=== PATIENT | male | born 1995 | race Caucasian/White ===

== ENCOUNTER 2018-04-02 00:05 | Observation (INO) | payer MEDICAID, SELFPAY ==
[2018-04-02 00:05] VITALS: BP 144/94; PULSE 82; RESP 16; TEMP 36.3; O2SAT 99
[2018-04-02 00:23] LABS: Bilirubin Negative (Negative); Blood Negative (Negative); Clarity Clear; Glucose Negative (Negative); Ketones Negative (Negative); Leukocyte Esterase Negative (Negative); Nitrite Negative (Negative)
[2018-04-02 00:33] LABS: Abs Immature Grans 0.01 k/cumm (0.0-0.09); Absolute Basophil Count 0.02 k/cumm (0.0-0.2); Absolute Eosinophil Count 0.21 k/cumm (0.0-0.7); Absolute Lymphocyte Count 3.38 k/cumm (1.2-3.4); Absolute Neutrophil Count 4.52 k/cumm (1.2-6.7); Basophils % 0.2; Eosinophils % 2.3; HCT 47.9 % (40.0-50.0); HGB 16.6 g/dL (13.5-17.5); Immature Grans % 0.1; Lymphocytes % 37.8; Mean Corp. HGB Concentration 34.7 g/dL (32.0-36.0); Mean Corpuscular Hemoglobin 28.8 pg (27.0-33.0); Mean Corpuscular Volume 83.2 fL (80-95); Mean Platelet Volume 11.1 fL (8.0-11.0); Monocytes % 8.9; Neutrophils % 50.7; Platelet Count 316 x1000/uL (130-400); RBC 5.76 m/cumm (4.50-6.00); RBC Distribution Width 13.6 % (11.8-14.1); White Blood Cell Count 8.94 k/cumm (4.4-10.8)
[2018-04-02 00:39] LABS: *AMPHETAMINES SCREEN URINE Negative (Negative); *BARBITURATES SCREEN URINE Negative (Negative); *BENZODIAZEPINES SCREEN URINE Negative (Negative); Cannabinoids THC POSITIVE (Negative); Cocaine Screen,Urine Negative (Negative); METHADONE URINE SCREEN Negative (Negative); OPIATES URINE SCREEN Negative (Negative)
[2018-04-02 00:40] LABS: Tricyclic Antidepressants Negative (Negative)
--- NOTE | 2018-04-02 00:41 | W.ED.GENAD ---
Discharge Plan Disposition Patient Disposition: STILL A PATIENT Condition: Good Discharge Details Chief Complaint: PsychEval Clinical Impression: Suicidal ideation Reason For Visit: CHEKO Primary Care Provider: NONE,NONE ED Provider: Collins Ferguson Home Meds and New Rx's Prescriptions: No Action quetiapine [Seroquel XR] 300 mg Tablet Extended Release 24 Hr 300 mg PO DAILY RF: 0 Medical Decision Making This is a 22-year-old male with a past medical history of suicidal thoughts and ideations who presents today for evaluation of suicidal thoughts. He does have a plan, however he does not want to enact his plan. He states that right now he does not want to act onhis plan and will be enacting it potentially in a couple years and not now.This plan includes taking a gun, shooting the skull only to crack the skull so that he could touch his brain and instantly . He understands that this is not realistic, and states that is why I would never actually kill myself. Patient states that mainly, I just feel very lonely I have no one to talk to at my apartment. That is when I begin thinking these things. We will perform laboratory workup and have mental health, and assessed the patient. 2:10 AM The patient has been seen and assessed by her mental health advisors, this point there are no free rooms at any of the psychiatric hospitals in [place], however [facility] has stated that they may have discharges in the morning and will be able to transfer. They will be recontacted in the morning for potential transfer. HPI General Date/Time Provider Initiated Documentation: 04/02/18 00:13. HPI Narrative: This is a pleasant 22-year-old male with a past medical history of suicidal ideations, depression, who presents today for evaluation of suicidal ideations. The patient is normally on Seroquel, however he states that for the last week he has stopped taking this because it gives him bad dreams. He states that tonight he began thinking or thoughts about wanting to harm himself. He states that I would never actually do it and they are all cerebral ideas. Plan at this time is that he would may be in a year or 2 I would take a gun, and suited at my school, but I would not want to blow migraines L, just want to go back to school. Then may be I would touch membrane and then I would . However I do not want to do this at all now, but may be in a few years. Patient denies any homicidal ideations. He denies taking any IV or illicit drugs. He denies any taking any pills or medications. He does admit to smoking tobacco and marijuana. He denies any recent surgeries. He denies any pertinent family history. He has had multiple admissions to [facility] in the past. He has no other complaints at this time. He denies any auditory or visual hallucinations. The patient does state that to be honest I am really lonely, I do not have anyone to talk to when I said at my apartment alone, I feel that he just wanted to talk and converse with people. Related Data Home Medications Medication Instructions Recorded Confirmed quetiapine [Seroquel XR] 300 mg PO DAILY 04/02/18 04/02/18 Allergies Allergy/AdvReac Type Severity Reaction Status Date / Time No Known Allergies Allergy Unverified 04/02/18 00:31 General Stated Complaint: PsychEval JHONATHAN: 2 Review of Systems Review of Systems All systems reviewed & are unremarkable except as noted in HPI and below PFSH Social History Smoking/Tobacco Use Status: Current every day Exam Narrative Exam Narrative: 1.Const: Well-nourished, Well-developed, appearing stated age 2.Eyes: PERRL, no conjunctival injection, and symmetrical lids. 3.ENT: Atraumatic external nose and ears. Moist MM. Neck: Symmetric, trachea midline, No thyromegaly. 4.CVS: +S1/S2, No murmurs or gallops. Peripheral pulses 2+ and equal in all extremities. Brisk capillary refill in all extremities. 5.RESP: Unlabored respiratory effort. Clear to auscultation bilaterally. No wheezes rales or rhonchi 6.GI: Soft, Nontender/Nondistended, No hepatosplenomegaly. No guarding or rebound. 7.MSK: Normocephalic/Atraumatic, Extremities w/o deformity or ttp No cyanosis or clubbing, Normal movement of all extremities 8.Skin: Warm, Dry. No rashes or lesions. 9.Neuro: production control analyst II-XII grossly intact. Sensation grossly intact, no focal neurologic deficits. 10.Psych: (AAO) x3. Appropriate mood and affect. No flight of ideas. No signs of magda. No pressured speech. Course Vital Signs Temperature 36.3 C L 04/02/18 00:05 Pulse 82 04/02/18 00:05 Respiratory Rate 16 04/02/18 00:05 Blood Pressure 144/94 H 04/02/18 00:05 Pulse Oximetry 99 04/02/18 00:05 Temperature 36.3 C L 04/02/18 00:05 Temperature Source Skin 04/02/18 00:05 Pulse 82 04/02/18 00:05 Respiratory Rate 16 04/02/18 00:05 Respiratory Effort Non-Labored 04/02/18 00:29 Blood Pressure 144/94 H 04/02/18 00:05 Blood Pressure Position Sitting 04/02/18 00:05 Pulse Oximetry 99 04/02/18 00:05 Oxygen Delivery Method Room Air 04/02/18 00:05 Oxygen Flow Rate 0 04/02/18 00:05 Lab/Test Results Lab/Test Results: Laboratory Tests Range/Units 04/02/18 04/02/18 00:15 00:30 WBC (4.4-10.8) k/cumm 8.94 RBC (4.50-6.00) m/cumm 5.76 Hgb (13.5-17.5) g/dL 16.6 Hct (40.0-50.0) % 47.9 MCV (80-95) fL 83.2 MCH (27.0-33.0) pg 28.8 MCHC (32.0-36.0) g/dL 34.7 RDW (11.8-14.1) % 13.6 Plt Count (130-400) x1000/uL 316 MPV (8.0-11.0) fL 11.1 H Immature Gran % 0.1 Neutrophils % 50.7 Lymphocytes % 37.8 Monocytes % 8.9 Eosinophils % 2.3 Basophils % 0.2 Absolute Neutrophils (1.2-6.7) k/cumm 4.52 Absolute Lymphocytes (1.2-3.4) k/cumm 3.38 Absolute Monocytes (0.11-0.7) k/cumm 0.80 H Absolute Eosinophils (0.0-0.7) k/cumm 0.21 Absolute Basophils (0.0-0.2) k/cumm 0.02 Urine Color (Yellow) Yellow Urine Clarity Clear Urine pH (5-8) 7.0 Ur Specific Galien (1.005-1.025) 1.020 Urine Protein (Negative) mg/dL Negative Urine Ketones (Negative) mg/dL Negative Urine Blood (Negative) Negative Urine Nitrite (Negative) Negative Urine Bilirubin (Negative) Negative Urine Urobilinogen (Up TO 0.2) EU/dL 2.0 H Ur Leukocyte Esterase (Negative) Negative Urine Glucose (Negative) mg/dL Negative
[2018-04-02 00:55] LABS: ALT 45 U/L (12-78); AST 18 U/L (15-37); Albumin 4.4 g/dL (3.4-5.0); Alkaline Phosphatase 94 U/L (46-116); Anion Gap 9.6 mmol/L (3-11); BUN 8 mg/dL (7-18); Bilirubin, Total 0.4 mg/dL (0.2-1.0); CO2 27.4 mmol/L (21.0-32.0); CREATININE 0.86 mg/dL (0.70-1.30); Calcium 9.2 mg/dL (8.5-10.1); Chloride 103 mmol/L (98-107); Glucose 94 mg/dL (70-100); Potassium 3.8 mmol/L (3.5-5.1); Sodium 140 mmol/L (136-145); TSH 1.83 uIU/mL (0.358-3.74); Total Protein 8.1 g/dL (6.4-8.2)
[2018-04-02 01:04] LABS: Salicylate < 2.8 mg/dL (2.8-20.0)
[2018-04-02 01:13] LABS: Acetaminophen < 2 ug/mL (10-30)
[2018-04-02] MEDS: Melatonin 3 MG TAB PO (03:41)
[2018-04-02] MEDS: diphenhydrAMINE 25 MG CAP PO (03:41)
--- NOTE | 2018-04-02 09:26 | PDOC.ERCMPRO ---
- If Service Date Differs Date of service: 04/02/18 Time of Service: 09:26 Care Management Progress Note Nakul presented to the ER for evaluation of suicidal thoughts, and feeling lonely. Per report from Nakul states that his plan is to graze his skull with a bullet so that he can then touch his brain and . Nakul reports that he does not want to today, though that he would carry out his plan in two years. Nakul has a past history of suicidal ideation, depression and is generally on Seroquel, though reports he has not taken it in the past week. Nakul is sleeping at this time, he received Melatonin and benadryl overnight. He has been cooperative and slept throughout the night. Per CHRISTOS Brar, aNkul is part of the MARINE ELECTRONICS TECHNICIAN program and MARINE ELECTRONICS TECHNICIAN will be in to see him this morning. Nakul will remain in the ER at this time until a bed is available on Med/Surg. Huddle Participants: Leydi Stevenson (RN), Jeannie (JORDON) Time and Date: 04/02/18 @ 0920 Safety plan has been established with patient, and care team, to adhere to patient goals, identify restrictions based on behavioral status, address nutrition, and determine allowed personal belongings, tools for hygiene and personal care. Determine level of activity including ambulation, level of supervision, visitors, and determine privileges based on behaviors and level of engagement by pt. SAFETY PLAN: 1. Will remain on suicide precautions and in paper clothes. 2. Will remain in room under direct supervision of one-on-one staff at all times provided by KIRSTIN, FACILITY SERVICE ASSOCIATE lye bath operator. 3. May have paper cups, plates, finger foods as well as a metal spoon with which to eat meals. [facility] staff will be responsible for accounting of utensils after meals. 4. Follow [facility] Management of the Admitted Behavioral Health Patient policy. 5. Comfort bath system only. 6. No personal belongings 7. Limit visitors at this time - To readdress once patient is awake and able to engage in discussion 8.Bathroom Privileges - temporary staff accountant to escort Nakul to the restroom. [facility] will be coordinating placement at inpatient facility, last updates included the following: No beds at this time. Potential for placement at [place] as they may have beds available this morning. MARINE ELECTRONICS TECHNICIAN to be in to meet with Nakul this morning. Patient is currently voluntarily at [facility] and seeking inpatient admission when a bed becomes available. [facility] Frontline Newcomer Hostess will continue seeking placement. Please contact the Process Environmental Technician Health Record Technician ([phone]) and [facility] Newcomer Hostess ([phone]) for any needed changes in the Safety Plan. Safety plan has been provided to interdepartmental care team including Clinical Coordinator , Nursing Underground Mining Section Foreman.
--- NOTE | 2018-04-02 09:34 | CMPROGNOTE_ITS ---
- If Service Date Differs Date of service: 04/02/18 Time of Service: 09:26 Care Management Progress Note Nakul presented to the ER for evaluation of suicidal thoughts, and feeling lonely. Per report from Nakul states that his plan is to graze his skull with a bullet so that he can then touch his brain and . Nakul reports that he does not want to today, though that he would carry out his plan in two years. Nakul has a past history of suicidal ideation, depression and is generally on Seroquel, though reports he has not taken it in the past week. Nakul is sleeping at this time, he received Melatonin and benadryl overnight. He has been cooperative and slept throughout the night. Per CHRISTOS Brar, Nakul is part of the DINKEY BRAKEMAN program and DINKEY BRAKEMAN will be in to see him this morning. Nakul will remain in the ER at this time until a bed is available on Med/Surg. Huddle Participants: Leydi Stevenson (RN), Jeannie (JORDON) Time and Date: 04/02/18 @ 0920 Safety plan has been established with patient, and care team, to adhere to patient goals, identify restrictions based on behavioral status, address nutrition, and determine allowed personal belongings, tools for hygiene and personal care. Determine level of activity including ambulation, level of supervision, visitors, and determine privileges based on behaviors and level of engagement by pt. SAFETY PLAN: 1. Will remain on suicide precautions and in paper clothes. 2. Will remain in room under direct supervision of one-on-one staff at all times provided by KIRSTIN, BLEACHER LARD collar shaper operator. 3. May have paper cups, plates, finger foods as well as a metal spoon with which to eat meals. [facility] staff will be responsible for accounting of utensils after meals. 4. Follow [facility] Management of the Admitted Behavioral Health Patient policy. 5. Comfort bath system only. 6. No personal belongings 7. Limit visitors at this time - To readdress once patient is awake and able to engage in discussion 8.Bathroom Privileges - staff physical therapist to escort Nakul to the restroom. [facility] will be coordinating placement at inpatient facility, last updates included the following: No beds at this time. Potential for placement at [place] as they may have beds available this morning. DINKEY BRAKEMAN to be in to meet with Nakul this morning. Patient is currently voluntarily at [facility] and seeking inpatient admission when a bed becomes available. [facility] Frontline Oyster Floater will continue seeking placement. Please contact the Mini Baccarat Dealer Business Intelligence Developer ([phone]) and [facility] Oyster Floater ([phone]) for any needed changes in the Safety Plan. Safety plan has been provided to interdepartmental care team including Clinical Coordinator , Nursing Supervisor Paper Machine.
--- NOTE | 2018-04-02 10:43 | W.ED.GENAD ---
Discharge Plan Disposition Patient Disposition: [facility] INPATIENT Condition: Good Discharge Details Chief Complaint: PsychEval Clinical Impression: Suicidal ideation Reason For Visit: SUICIDAL IDEATION Admit Date/Time: 04/02/18 19:04 Admit Provider: Larry Guidry Attending Provider: Larry Guidry Primary Care Provider: Taylor Cruz ED Provider: Manuela Atwood Discharge Data Discharge Date/Time-TO BE ENTERED AT DEPARTURE: 04/02/18 20:14 Medical Decision Making Please see Dr. Ferguson's note for initial presentation, exam, and plan. Patient is a 22-year-old male with a history of PTSD, insomnia and adjustment disorder who presented for feelings of loneliness, paranoia and suicidal ideation. Patient had denied feeling suicidal at present but had admitted that in 2 years he plan to put a gun to my head, graze my skull, and touch my brain to see if I . Patient was medically cleared and is voluntary. Plan was for possible [facility] overnight but there were no beds available overnight but they anticipated discharges this morning. Plan is for mental health to resume plan for transfer to [facility] this morning. 1530 --discussed with mental health -states she discussed with [facility] and multiple other facilities including [facility] and there are no beds. There was a plan to go to [facility] today when bed became available today. This was discussed with care management and they will start to make calls again. Case was discussed with hospitalist for plan for possible admission if care management unsuccessful with obtaining a bed. 1800 --d/w care management and mental health - there will be no beds available tonight. Recommend admission to floor overnight. 181 --D/w hospitalist - accepts pt for admission. HPI General Date/Time Provider Initiated Documentation: 04/02/18 00:13. Related Data Home Medications Medication Instructions Recorded Confirmed quetiapine [Seroquel XR] 300 mg PO DAILY 04/02/18 04/02/18 Allergies Allergy/AdvReac Type Severity Reaction Status Date / Time No Known Allergies Allergy Unverified 04/02/18 00:31 General Stated Complaint: PsychEval JHONATHAN: 2 PFSH Medical History PTSD (post-traumatic stress disorder) (Acute 02/19/18) Insomnia (Acute 02/19/18) Gastroesophageal reflux disease (Acute 02/19/18) Adjustment disorder with emotional disturbance (Acute 02/19/18) At high risk for suicide (Acute) Social History foster care: Yes housing: apartment lives independently: Yes Smoking/Tobacco Use Status: Current every day tobacco type: cigarettes substance use type: marijuana additional social history: Smokes 1 pack/day, rare alcohol, occasional marijuana, no drugs of abuse. Course This is a 22-year-old man brought to the emergency room by law enforcement because of active suicidality. He apparently has told someone that he intends to shoot himself in the head. He was evaluated by mental health who felt he was a danger to himself and recommended emergency evaluation. He has been in the emergency room for several hours and attempts to obtain a psychiatric bed have failed. He is admitted to [facility] for further holding status/emergency evaluation in anticipation of psychiatric admission. Since being on [facility] he has been maintained on one-to-one constant observation. He has been eating and drinking bowels and bladder functioning. He has had no fevers no complaints of chest pain respiratory distress abdominal pain nausea vomiting diarrhea or constipation he has been hemodynamically and medically stable. [facility] now has a inpatient bed for psychiatric treatment patient will be transferred to the facility per protocol. Vital Signs Temperature 97.3 F L 04/02/18 00:05 Pulse 82 04/02/18 00:05 Respiratory Rate 16 04/02/18 00:05 Blood Pressure 144/94 H 04/02/18 00:05 Pulse Oximetry 99 04/02/18 00:05 Temperature 97.3 F L 04/02/18 00:05 Temperature Source Skin 04/02/18 00:05 Pulse 82 04/02/18 00:05 Respiratory Rate 16 04/02/18 00:05 Respiratory Effort Non-Labored 04/02/18 00:29 Blood Pressure 144/94 H 04/02/18 00:05 Blood Pressure Position Sitting 04/02/18 00:05 Pulse Oximetry 99 04/02/18 00:05 Oxygen Delivery Method Room Air 04/02/18 00:05 Oxygen Flow Rate 0 04/02/18 00:05 Lab/Test Results Lab/Test Results: Laboratory Tests Range/Units 04/02/18 04/02/18 04/02/18 00:15 00:15 00:30 WBC (4.4-10.8) k/cumm RBC (4.50-6.00) m/cumm Hgb (13.5-17.5) g/dL Hct (40.0-50.0) % MCV (80-95) fL MCH (27.0-33.0) pg MCHC (32.0-36.0) g/dL RDW (11.8-14.1) % Plt Count (130-400) x1000/uL MPV (8.0-11.0) fL Immature Gran % Neutrophils % Lymphocytes % Monocytes % Eosinophils % Basophils % Absolute Neutrophils (1.2-6.7) k/cumm Absolute Lymphocytes (1.2-3.4) k/cumm Absolute Monocytes (0.11-0.7) k/cumm Absolute Eosinophils (0.0-0.7) k/cumm Absolute Basophils (0.0-0.2) k/cumm Sodium (136-145) mmol/L 140 Potassium (3.5-5.1) mmol/L 3.8 Chloride (98-107) mmol/L 103 Carbon Dioxide (21.0-32.0) mmol/L 27.4 Anion Gap (3-11) mmol/L 9.6 BUN (7-18) mg/dL 8 Creatinine (0.70-1.30) mg/dL 0.86 Estimated GFR/1.73 m2 (mL/min/1.73m2) >= 60.00 Glucose (70-100) mg/dL 94 Calcium (8.5-10.1) mg/dL 9.2 Total Bilirubin (0.2-1.0) mg/dL 0.4 AST (15-37) U/L 18 ALT (12-78) U/L 45 Alkaline Phosphatase (46-116) U/L 94 Total Protein (6.4-8.2) g/dL 8.1 Albumin (3.4-5.0) g/dL 4.4 TSH (0.358-3.74) uIU/mL 1.83 Urine Color (Yellow) Yellow Urine Clarity Clear Urine pH (5-8) 7.0 Ur Specific Jefferson (1.005-1.025) 1.020 Urine Protein (Negative) mg/dL Negative Urine Ketones (Negative) mg/dL Negative Urine Blood (Negative) Negative Urine Nitrite (Negative) Negative Urine Bilirubin (Negative) Negative Urine Urobilinogen (Up TO 0.2) EU/dL 2.0 H Ur Leukocyte Esterase (Negative) Negative Urine Glucose (Negative) mg/dL Negative Salicylates (2.8-20.0) mg/dL Urine Opiates Screen (Negative) Negative Urine Methadone Screen (Negative) Negative Acetaminophen (10-30) ug/mL Ur Barbiturates Screen (Negative) Negative Ur Tricyclics Screen (Negative) Negative Ur Amphetamines Screen (Negative) Negative U Benzodiazepines Scrn (Negative) Negative Urine Cocaine Screen (Negative) Negative Ur THC Screen (Negative) Positive Range/Units 04/02/18 04/02/18 00:30 00:30 WBC (4.4-10.8) k/cumm 8.94 RBC (4.50-6.00) m/cumm 5.76 Hgb (13.5-17.5) g/dL 16.6 Hct (40.0-50.0) % 47.9 MCV (80-95) fL 83.2 MCH (27.0-33.0) pg 28.8 MCHC (32.0-36.0) g/dL 34.7 RDW (11.8-14.1) % 13.6 Plt Count (130-400) x1000/uL 316 MPV (8.0-11.0) fL 11.1 H Immature Gran % 0.1 Neutrophils % 50.7 Lymphocytes % 37.8 Monocytes % 8.9 Eosinophils % 2.3 Basophils % 0.2 Absolute Neutrophils (1.2-6.7) k/cumm 4.52 Absolute Lymphocytes (1.2-3.4) k/cumm 3.38 Absolute Monocytes (0.11-0.7) k/cumm 0.80 H Absolute Eosinophils (0.0-0.7) k/cumm 0.21 Absolute Basophils (0.0-0.2) k/cumm 0.02 Sodium (136-145) mmol/L Potassium (3.5-5.1) mmol/L Chloride (98-107) mmol/L Carbon Dioxide (21.0-32.0) mmol/L Anion Gap (3-11) mmol/L BUN (7-18) mg/dL Creatinine (0.70-1.30) mg/dL Estimated GFR/1.73 m2 (mL/min/1.73m2) Glucose (70-100) mg/dL Calcium (8.5-10.1) mg/dL Total Bilirubin (0.2-1.0) mg/dL AST (15-37) U/L ALT (12-78) U/L Alkaline Phosphatase (46-116) U/L Total Protein (6.4-8.2) g/dL Albumin (3.4-5.0) g/dL TSH (0.358-3.74) uIU/mL Urine Color (Yellow) Urine Clarity Urine pH (5-8) Ur Specific Jefferson (1.005-1.025) Urine Protein (Negative) mg/dL Urine Ketones (Negative) mg/dL Urine Blood (Negative) Urine Nitrite (Negative) Urine Bilirubin (Negative) Urine Urobilinogen (Up TO 0.2) EU/dL Ur Leukocyte Esterase (Negative) Urine Glucose (Negative) mg/dL Salicylates (2.8-20.0) mg/dL < 2.8 L Urine Opiates Screen (Negative) Urine Methadone Screen (Negative) Acetaminophen (10-30) ug/mL < 2 L Ur Barbiturates Screen (Negative) Ur Tricyclics Screen (Negative) Ur Amphetamines Screen (Negative) U Benzodiazepines Scrn (Negative) Urine Cocaine Screen (Negative) Ur THC Screen (Negative) Sign Out Sign Out Data: Sign Out Comment: Awaiting placement. [facility] room this morning after 9 AM. Voluntary Last updated by Collins Ferguson DO at 04/02/18 07:34
--- NOTE | 2018-04-02 11:06 | PDOC.MHCN ---
Date of service: 04/02/18 Time of Service: 11:06 Mental Health Crisis Note Presenting Issue How did you arrive at the ED and why did you come: Client arrived at [facility] via ambulance. Precipitating Factors Client is currently experiencing SI with no plan. Denies HI. Client stated he has been feeling lonely and depressed. Client stated he is inside and he 'doesn't feel feelings. Disposition BEHAVIOR: Client was laying down on a hospital bed with the blanket over his head. This Driver Lifter Of Sanitation Truck asked he remove the blanket to talk--he replaced it shortly after removing it from his face. Client was minimally communicative and reluctant to share information. Client had been refusing medication and food and drink. Client agreed to take medication. EYE CONTACT: No eye contact. Client was underneath blanket for a majority of the assessment. MOOD: Depressed AFFECT: N/A APPETITE: It was reported the client is refusing food and drink. SLEEP(trouble falling/staying asleep: It was reported the client had slept for at least 3 hours. Plan Client is voluntary and psychiatric placement will continue to be sought. [facility] had no beds. A referral was sent to [facility], and [facility]. Currently waiting on a call back for bed availability at [facility]. [facility] is reviewing the referral and will call back with a determination. Safety precautions will stay the same. A huddle was done with Yuliana Tapia CM and Dr. Atwood (~10:30am). Signature Clinician's Name/Title: Maria G Lizama CRT Driver Lifter Of Sanitation Truck, BA
--- NOTE | 2018-04-02 11:30 | PDOC.MHCN_ITS ---
Date of service: 04/02/18 Time of Service: 11:06 Mental Health Crisis Note Presenting Issue How did you arrive at the ED and why did you come: Client arrived at [facility] via ambulance. Precipitating Factors Client is currently experiencing SI with no plan. Denies HI. Client stated he has been feeling lonely and depressed. Client stated he is inside and he 'doesn't feel feelings. Disposition BEHAVIOR: Client was laying down on a hospital bed with the blanket over his head. This Solution Director asked he remove the blanket to talk--he replaced it shortly after removing it from his face. Client was minimally communicative and reluctant to share information. Client had been refusing medication and food and drink. Client agreed to take medication. EYE CONTACT: No eye contact. Client was underneath blanket for a majority of the assessment. MOOD: Depressed AFFECT: N/A APPETITE: It was reported the client is refusing food and drink. SLEEP(trouble falling/staying asleep: It was reported the client had slept for at least 3 hours. Plan Client is voluntary and psychiatric placement will continue to be sought. [facility]. A referral was sent to [facility], and [facility]. Currently waiting on a call back for bed availability at [facility]. [facility] is reviewing the referral and will call back with a determination. Safety precautions will stay the same. A huddle was done with Yuliana Tapia CM and Dr. Atwood (~10:30am). Signature Clinician's Name/Title: Maria G Lizama CRT Solution Director, BA
--- NOTE | 2018-04-02 15:52 | PDOC.ERCMPRO ---
Care Management Progress Note 04/02/18-Pt has been cooperative throughout his stay in ED . Pt requested lunch . A sandwich, chips, fruit, cookie and drink were brought to him.Pt ate most of the meal. 12:00PM-Maria G [facility], Dr. Rema Atwood and Yuliana RUVALCABA huddled to discuss Pt's safety plan . All agreed to keep plan in place. It was also brought up by Maria G that Pt hasn't taken his seroquel in a week as pours his meds weekly for him at home. It was suggested to Pt by Maria G that he take his seroquel dosage and Pt has agreed. Dr. Rema Atwood has written for med order. Maria G had to leave to attend another call and will f/u in a few hours. 2:50pm- JORDON called Maria G at [facility] to get an update on facilities that had been contacted for admission. At this time she states there are no beds avail. Suzy did say they would take pt tomorrow upon any d/c's they may have. 3:20PM- Huddle with Js Trevino-Melany RUVALCABA-Pedodontist RN, and Yuliana-JORDON discussed the lack of bed avail for this Pt. Jeannie has contacted Lenore who oversees the [facility] beds to request her assistance. Jeannie left VM messages for Lenore. All agreed to keep safety plan in place. Safety plan has been established with patient, and care team, to adhere to patient goals, identify restrictions based on behavioral status, address nutrition, and determine allowed personal belongings, tools for hygiene and personal care. Determine level of activity including ambulation, level of supervision, visitors, and determine privileges based on behaviors and level of engagement by pt. SAFETY PLAN: 1. Will remain on suicide precautions and in paper clothes. 2. Will remain in room under direct supervision of one-on-one staff at all times provided by KIRSTIN, ARJUN perforating machine operator. 3. May have paper cups, plates, finger foods as well as a metal spoon with which to eat meals. [facility] staff will be responsible for accounting of utensils after meals. 4. Follow [facility] Management of the Admitted Behavioral Health Patient policy. 5. Comfort bath system only. 6. No personal belongings 7. Limit visitors at this time - To readdress once patient is awake and able to engage in discussion 8.Bathroom Privileges - executive staff assistant to escort Nakul to the restroom. [facility] will be coordinating placement at inpatient facility, last updates included the following: No beds at this time. Potential for placement at [place] as they may have beds available this morning. MEDICAL PRACTITIONERS to be in to meet with Nakul this morning. Patient is currently voluntarily at [facility] and seeking inpatient admission when a bed becomes available. [facility] Frontline Preventative Maintenance Technician will continue seeking placement. Please contact the Engine Dispatcher Manager Of Customer Billing ([phone]) and [facility] Preventative Maintenance Technician ([phone]) for any needed changes in the Safety Plan. Safety plan has been provided to interdepartmental care team including Clinical Coordinator , Nursing Pedodontist.
--- NOTE | 2018-04-02 16:04 | CMPROGNOTE_ITS ---
Care Management Progress Note 04/02/18-Pt has been cooperative throughout his stay in ED . Pt requested lunch . A sandwich, chips, fruit, cookie and drink were brought to him.Pt ate most of the meal. 12:00PM-Maria G [facility], Dr. Rema Atwood and Yuliana RUVALCABA huddled to discuss Pt 's safety plan . All agreed to keep plan in place. It was also brought up by Maria G that Pt hasn't taken his seroquel in a week as pours his meds weekly for him at home. It was suggested to Pt by Maria G that he take his seroquel dosage and Pt has agreed. Dr. Rema Atwood has written for med order. Maria G had to leave to attend another call and will f/u in a few hours. 2:50pm- JORDON called Maria G at [facility] to get an update on facilities that had been contacted for admission. At this time she states there are no beds avail. Suzy did say they would take pt tomorrow upon any d/c's they may have. 3:20PM- Huddle with Js Trevino-Melany RUVALCABA-Elementary School Registrar RN, and Yuliana -JORDON discussed the lack of bed avail for this Pt. Jeannie has contacted Lenore who oversees the [facility] beds to request her assistance. Jeannie left VM messages for Lenore. All agreed to keep safety plan in place. Safety plan has been established with patient, and care team, to adhere to patient goals, identify restrictions based on behavioral status, address nutrition, and determine allowed personal belongings, tools for hygiene and personal care. Determine level of activity including ambulation, level of supervision, visitors, and determine privileges based on behaviors and level of engagement by pt. SAFETY PLAN: 1. Will remain on suicide precautions and in paper clothes. 2. Will remain in room under direct supervision of one-on-one staff at all times provided by KIRSTIN, ARJUN ore trimmer. 3. May have paper cups, plates, finger foods as well as a metal spoon with which to eat meals. [facility] staff will be responsible for accounting of utensils after meals. 4. Follow [facility] Management of the Admitted Behavioral Health Patient policy. 5. Comfort bath system only. 6. No personal belongings 7. Limit visitors at this time - To readdress once patient is awake and able to engage in discussion 8.Bathroom Privileges - direct support staff to escort Nakul to the restroom. [facility] will be coordinating placement at inpatient facility, last updates included the following: No beds at this time. Potential for placement at [place] as they may have beds available this morning. BIT SETTER to be in to meet with Nakul this morning. Patient is currently voluntarily at [facility] and seeking inpatient admission when a bed becomes available. [facility] Frontline Neon Sign Servicer will continue seeking placement. Please contact the Boardinghouse Keeper Store Team Member ([phone]) and [facility] Neon Sign Servicer ([phone]) for any needed changes in the Safety Plan. Safety plan has been provided to interdepartmental care team including Clinical Coordinator , Nursing Elementary School Registrar.
[2018-04-02 20:09] VITALS: BP 144/94; PULSE 82; RESP 16; TEMP 36.3; O2SAT 99
[2018-04-02 20:27] VITALS: BP 112/69; PULSE 70; RESP 16; TEMP 37.2; O2SAT 93
--- NOTE | 2018-04-02 20:46 | NUR.NOTE ---
Patient arrived via ambulatory from ED at 20:10. See admission page 2 for initial assessment and vitals.
--- NOTE | 2018-04-02 21:06 | HPE_ITS ---
Date of service: 04/02/18 Time of Service: 20:53 Assessment and Plan (1) PTSD (post-traumatic stress disorder): Current visit: Yes Status: Acute Overall mood appears to be stable. No real anxiety issues. (2) Insomnia: Current visit: Yes Status: Acute We will continue on Seroquel 300 mg p.o. every hs (3) Adjustment disorder with emotional disturbance: Current visit: Yes Status: Acute He is admitting to suicidal ideation, a desire to shoot himself in the head. Mental health feels he would benefit from psychiatric admission. He is on emergency evaluation status. We will continue with placement in a psychiatric facility when bed available. History of Present Illness Chief Complaint: Suicidality Narrative: This is a 22-year-old man brought to the emergency room by law enforcement because of active suicidality. He apparently has told someone that he intends to shoot himself in the head. He was evaluated by mental health who felt he was a danger to himself and recommended emergency evaluation. He has been in the emergency room for several hours and attempts to obtain a psychiatric bed have failed. He is admitted to [facility] for further holding status/emergency evaluation in anticipation of psychiatric admission. Review of Systems Review of Systems All systems reviewed & are unremarkable except as noted in HPI and below Constitutional Reports difficulty sleeping and Denies excessive sweating ENT Denies dysphagia Cardiovascular Denies chest pain at rest Respiratory Denies stridor and Denies wheezing Gastrointestinal Denies dysphagia and Denies dyspepsia Genitourinary Denies difficulty urinating Musculoskeletal Denies arthralgias Integumentary/Breasts Denies changing lesions Neurologic Denies abnormal movements and Reports behavioral changes Psychiatric Reports behavioral changes, Reports mood swings and Reports suicidal ideation Endocrine Denies deepening of the voice and Denies excessive sweating Allergic/Immunologic Denies wheezing PFSH Medical History PTSD (post-traumatic stress disorder) (Acute 02/19/18) Insomnia (Acute 02/19/18) Gastroesophageal reflux disease (Acute 02/19/18) Adjustment disorder with emotional disturbance (Acute 02/19/18) At high risk for suicide (Acute) Social History foster care: Yes housing: apartment lives independently: Yes Smoking/Tobacco Use Status: Current every day tobacco type: cigarettes substance use type: marijuana additional social history: Smokes 1 pack/day, rare alcohol, occasional marijuana, no drugs of abuse. [facility] Medications Medication Instructions Recorded Confirmed Type quetiapine [Seroquel XR] 300 mg PO DAILY 04/02/18 04/02/18 History Allergies Allergy/AdvReac Type Severity Reaction Status Date / Time No Known Allergies Allergy Unverified 04/02/18 00:31 Exam Const General: cooperative and no acute distress Nutritional Appearance: obese Orientation: alert, awake and oriented x3 Limitations: no language barrier HENMT Head: normal to inspection General nose exam: external nose normal Face and sinus: normal facial exam Neck Neck: normal visual inspection Chest Chest: normal inspection of the chest Resp Effort & Inspection: normal respiratory effort Auscultation: clear to auscultation bilaterally Cardio Rate: regular rate Rhythm: regular rhythm Heart Sounds: S1 normal, S2 normal and no murmurs GI Inspection: normal to inspection Palpation: soft and nontender Skin General skin exam: no rashes or lesions noted Neuro General: no focal motor deficits Cognition: normal cognition Extrem General: normal to inspection Psych Appearance: grossly normal Mental Status: mental status grossly normal Speech and Movement: speech and movement normal Mood: congruent mood Affect: normal affect Attitude: cooperative Thought Process: normal Thought Content: normal Insight: fair Judgment: fair Results Labs : 04/02/18 00:30 04/02/18 00:30 Laboratory Results - last 24 hr 04/02/18 04/02/18 04/02/18 00:15 00:15 00:30 WBC RBC Hgb Hct MCV MCH MCHC RDW Plt Count MPV Immature Gran % Neutrophils % Lymphocytes % Monocytes % Eosinophils % Basophils % Absolute Neutrophils Absolute Lymphocytes Absolute Monocytes Absolute Eosinophils Absolute Basophils Sodium 140 Potassium 3.8 Chloride 103 Carbon Dioxide 27.4 Anion Gap 9.6 BUN 8 Creatinine 0.86 Estimated GFR/1.73 m2 >= 60.00 Glucose 94 Calcium 9.2 Total Bilirubin 0.4 AST 18 ALT 45 Alkaline Phosphatase 94 Total Protein 8.1 Albumin 4.4 TSH 1.83 Urine Color Yellow Urine Clarity Clear Urine pH 7.0 Ur Specific [place] 1.020 Urine Protein Negative Urine Ketones Negative Urine Blood Negative Urine Nitrite Negative Urine Bilirubin Negative Urine Urobilinogen 2.0 H Ur Leukocyte Esterase Negative Urine Glucose Negative Salicylates Urine Opiates Screen Negative Urine Methadone Screen Negative Acetaminophen Ur Barbiturates Screen Negative Ur Tricyclics Screen Negative Ur Amphetamines Screen Negative U Benzodiazepines Scrn Negative Urine Cocaine Screen Negative Ur THC Screen Positive 04/02/18 04/02/18 00:30 00:30 WBC 8.94 RBC 5.76 Hgb 16.6 Hct 47.9 MCV 83.2 MCH 28.8 MCHC 34.7 RDW 13.6 Plt Count 316 MPV 11.1 H Immature Gran % 0.1 Neutrophils % 50.7 Lymphocytes % 37.8 Monocytes % 8.9 Eosinophils % 2.3 Basophils % 0.2 Absolute Neutrophils 4.52 Absolute Lymphocytes 3.38 Absolute Monocytes 0.80 H Absolute Eosinophils 0.21 Absolute Basophils 0.02 Sodium Potassium Chloride Carbon Dioxide Anion Gap BUN Creatinine Estimated GFR/1.73 m2 Glucose Calcium Total Bilirubin AST ALT Alkaline Phosphatase Total Protein Albumin TSH Urine Color Urine Clarity Urine pH Ur Specific [place] Urine Protein Urine Ketones Urine Blood Urine Nitrite Urine Bilirubin Urine Urobilinogen Ur Leukocyte Esterase Urine Glucose Salicylates < 2.8 L Urine Opiates Screen Urine Methadone Screen Acetaminophen < 2 L Ur Barbiturates Screen Ur Tricyclics Screen Ur Amphetamines Screen U Benzodiazepines Scrn Urine Cocaine Screen Ur THC Screen
[2018-04-02] MEDS: QUEtiapine 300 MG TAB PO (21:36)
[2018-04-03 00:03] VITALS: BP 143/75; PULSE 101; RESP 17; TEMP 37.1; O2SAT 98
[2018-04-03 09:55] VITALS: O2SAT 98
[2018-04-03 10:50] VITALS: BP 126/88; PULSE 79; RESP 17; TEMP 36.3; O2SAT 96
--- NOTE | 2018-04-03 11:38 | PHARADMIT ---
Admission Pharmacy Clinical Review SUICIDAL IDEATION (voluntary status) Code Status Full Code Current Weight Wgt- 100 kg Renally Cleared and Narrow Therapeutic Index Meds CrCl~ 137 mL/min Meds-OK QTc Value / Action Taken na BP Control, Fever BP-126/88 Tmax- 372C Electrolytes reviewed Na-140 K+3.8 DVT Prophylaxis none (age) Opiate Usage / Scheduled Bowel Regimen Ordered No Yes Plt/SCr for Heparin / Enoxaparin Plts-316 SCr-0.86 INR for Warfarin na H/H stable, WBC/Bands H&H- 16.6/47.9 WBC- 8.94 Antibiotic appropriateness none none Cultures and Sensitivities None Surgical ABX d/c within 24 hr na DM control / Insulin Dosing BG-94 Heart Failure (Check EF%) (PEARL's, B-Block, Diuretics) none IV to PO Switch No Home Meds Reviewed Yes Home Meds Not Ordered Ordered Comments
--- NOTE | 2018-04-03 12:31 | PDOC.CMIN ---
- If Service Date Differs Date of service: 04/03/18 Time of Service: 12:31 Care Management Initial Assess REASON FOR HOSPITALIZATION:: Suicidal Ideation PAST MEDICAL HISTORY/PAST SURGICAL HISTORY:: PTSD (post-traumatic stress disorder) (Acute 02/19/18). Insomnia (Acute 02/19/18). Gastroesophageal reflux disease (Acute 02/19/18). Adjustment disorder with emotional disturbance (Acute 02/19/18). At high risk for suicide (Acute) PREVIOUS FUNCTIONAL STATUS/SOCIAL/FAMILY SUPPORTS:: Nakul resides alone in [facility]. He previously resided in [place] where his family is located, whom are supportive. Nakul also was seeing PROTOTYPE CARPENTER through [facility] in [place] until he relocated. Nakul is independent at baseline. CURRENT FUNCTIONAL STATUS:: Lying in bed this morning, forthcoming and cooperative throughout discussion ADVANCE DIRECTIVES:: None on file Has patient been provided with information about the portal?: Yes Did the patient sign up for the portal?: No CODE STATUS:: Full Code INSURANCE COVERAGE / FINANCIAL ISSUES:: Medicaid CURRENT HOME/COMMUNITY SERVICES/EQUIPMENT:: Currently Nakul receives PROTOTYPE CARPENTER services through [facility] in [facility], Matt Felder is his correctional case manager. PRIMARY CARE PHYSICIAN:: Taylor Cruz POTENTIAL DISCHARGE NEEDS:: Psychiatric placement PATIENT/FAMILY EDUCATION NEEDS:: Review DC instructions, any limitations, and ongoing DC planning discussion. Discuss Ask Me Three ANTICIPATED BARRIERS TO DISCHARGE:: None identified at this time. TRANSPORTATION:: Via deputy sheriff building guard PLAN:: Nakul will remain at [facility] until a psychiatric bed becomes available. He is a voluntary patient at this time and is cooperative. Machine Hand to transport once an appropriate bed becomes available.
--- NOTE | 2018-04-03 12:44 | INITIAL_ITS ---
- If Service Date Differs Date of service: 04/03/18 Time of Service: 12:31 Care Management Initial Assess REASON FOR HOSPITALIZATION:: Suicidal Ideation PAST MEDICAL HISTORY/PAST SURGICAL HISTORY:: PTSD (post-traumatic stress disorder) (Acute 02/19/18). Insomnia (Acute 02/19/18). Gastroesophageal reflux disease (Acute 02/19/18). Adjustment disorder with emotional disturbance (Acute 02/19/18). At high risk for suicide (Acute) PREVIOUS FUNCTIONAL STATUS/SOCIAL/FAMILY SUPPORTS:: Nakul resides alone in [facility]. He previously resided in [place] where his family is located, whom are supportive. Nakul also was seeing CERTIFIED ADDICTION COUNSELOR through [facility] in [place] until he relocated. Nakul is independent at baseline. CURRENT FUNCTIONAL STATUS:: Lying in bed this morning, forthcoming and cooperative throughout discussion ADVANCE DIRECTIVES:: None on file Has patient been provided with information about the portal?: Yes Did the patient sign up for the portal?: No CODE STATUS:: Full Code INSURANCE COVERAGE / FINANCIAL ISSUES:: Medicaid CURRENT HOME/COMMUNITY SERVICES/EQUIPMENT:: Currently Nakul receives CERTIFIED ADDICTION COUNSELOR services through [facility] in [facility], Matt Felder is his lead case manager. PRIMARY CARE PHYSICIAN:: Taylor Cruz POTENTIAL DISCHARGE NEEDS:: Psychiatric placement PATIENT/FAMILY EDUCATION NEEDS:: Review DC instructions, any limitations, and ongoing DC planning discussion. Discuss Ask Me Three ANTICIPATED BARRIERS TO DISCHARGE:: None identified at this time. TRANSPORTATION:: Via flat cutter PLAN:: Nakul will remain at [facility] until a psychiatric bed becomes available. He is a voluntary patient at this time and is cooperative. Character Impersonator to transport once an appropriate bed becomes available.
--- NOTE | 2018-04-03 13:16 | W.PM.PROGNOT ---
Assessment and Plan (1) Suicidal ideation: Current visit: Yes Status: Acute He admits to suicidal ideation. He had a plan to shoot himself in the head. Mental health is working on getting him placed at a psychiatric facility. He has been to psychiatric facilities in the past. Will continue one-to-one patient observation to keep him safe. Continue safety plan. We will continue to monitor him until mental health get some placed. (2) Insomnia: Current visit: Yes Status: Acute Continue Seroquel 300 mg p.o. at at bedtime. (3) Discharge planning issues: Current visit: Yes Status: Acute He is a full code. This case was discussed with Dr. Banks who is in agreement. 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 He apparently has told someone that he intends to shoot himself in the head. He was evaluated by mental health in the emergency department who felt he was a danger to himself and recommended that he be placed at an appropriate psychiatric facility. He is currently being held on observation on the med/surg floor until he can be placed at a psyche facility. He has a 1:1 patient observer. Today, he is lying on a stretcher with a pillow over his head. He finally removed the pillow from his face but kept his arm over his eyes. He reports feeling safe here. He admits to feeling suicidal prior to his hospitalization. He reports being hospitalized at a psyche facility multiple times in the past. He has been to [place] and is in agreement with going there again. He currently feels depressed. He denies any other concerns. He reports eating and drinking, bowels and bladder are functioning normally, no chest pain/pressure, palpitations, no nausea, vomiting, diarrhea, he denies pain. Exam Const General: cooperative (keeps face covered throughout conversation. answers questions appropriately but briefly.), comfortable and no acute distress Orientation: alert, awake and oriented x3 HENMT Head: normocephalic and atraumatic Mouth: moist mucous membranes Teeth and gingiva: poor dentition Neck Neck: supple Resp Effort & Inspection: normal respiratory effort Auscultation: clear to auscultation bilaterally, no rales, no rhonchi and no wheezes Cardio Rate: regular rate Heart Sounds: S1 normal, S2 normal, no click, no gallops, no murmurs and no rubs Pulses: normal peripheral pulses GI Palpation: soft, no masses and nontender Auscultation: normal bowel sounds Extrem General: no clubbing, cyanosis or edema Objective Objective Clinical Data: Vital Signs Temperature 36.3 C L 04/03/18 10:50 Temperature Source Tympanic 04/03/18 10:50 Pulse 79 04/03/18 10:50 Pulse Rhythm Regular 04/03/18 10:30 Respiratory Rate 17 04/03/18 10:50 Respiratory Effort Non-Labored 04/03/18 10:30 Respiratory Depth Normal 04/03/18 10:30 Respiratory Pattern Normal 04/03/18 10:30 Blood Pressure 126/88 04/03/18 10:50 Blood Pressure Position Sitting 04/02/18 00:05 Pulse Oximetry 96 04/03/18 10:50 Oxygen Delivery Method Room Air 04/03/18 10:50 Oxygen Flow Rate 0 04/03/18 10:50 Pain Level 0 04/02/18 20:27 Comment 04/02/18 20:27 Intake & Output 04/02/18 04/03/18 04/03/18 23:59 11:59 23:59 Intake Total 446 / 446 Balance 446 / 446 Weight 100 kg Intake: Oral 446 / 446 Laboratory Results WBC 8.94 k/cumm (4.4-10.8) 04/02/18 00:30 RBC 5.76 m/cumm (4.50-6.00) 04/02/18 00:30 Hgb 16.6 g/dL (13.5-17.5) 04/02/18 00:30 Hct 47.9 % (40.0-50.0) 04/02/18 00:30 MCV 83.2 fL (80-95) 04/02/18 00:30 MCH 28.8 pg (27.0-33.0) 04/02/18 00:30 MCHC 34.7 g/dL (32.0-36.0) 04/02/18 00:30 RDW 13.6 % (11.8-14.1) 04/02/18 00:30 Plt Count 316 x1000/uL (130-400) 04/02/18 00:30 MPV 11.1 fL (8.0-11.0) H 04/02/18 00:30 Immature Gran % 0.1 04/02/18 00:30 Neutrophils % 50.7 04/02/18 00:30 Lymphocytes % 37.8 04/02/18 00:30 Monocytes % 8.9 04/02/18 00:30 Eosinophils % 2.3 04/02/18 00:30 Basophils % 0.2 04/02/18 00:30 Absolute Neutrophils 4.52 k/cumm (1.2-6.7) 04/02/18 00:30 Absolute Lymphocytes 3.38 k/cumm (1.2-3.4) 04/02/18 00:30 Absolute Monocytes 0.80 k/cumm (0.11-0.7) H 04/02/18 00:30 Absolute Eosinophils 0.21 k/cumm (0.0-0.7) 04/02/18 00:30 Absolute Basophils 0.02 k/cumm (0.0-0.2) 04/02/18 00:30 Sodium 140 mmol/L (136-145) 04/02/18 00:30 Potassium 3.8 mmol/L (3.5-5.1) 04/02/18 00:30 Chloride 103 mmol/L (98-107) 04/02/18 00:30 Carbon Dioxide 27.4 mmol/L (21.0-32.0) 04/02/18 00:30 Anion Gap 9.6 mmol/L (3-11) 04/02/18 00:30 BUN 8 mg/dL (7-18) 04/02/18 00:30 Creatinine 0.86 mg/dL (0.70-1.30) 04/02/18 00:30 Estimated GFR/1.73 m2 >= 60.00 (mL/min/1.73m2) 04/02/18 00:30 Glucose 94 mg/dL (70-100) 04/02/18 00:30 Calcium 9.2 mg/dL (8.5-10.1) 04/02/18 00:30 Total Bilirubin 0.4 mg/dL (0.2-1.0) 04/02/18 00:30 AST 18 U/L (15-37) 04/02/18 00:30 ALT 45 U/L (12-78) 04/02/18 00:30 Alkaline Phosphatase 94 U/L (46-116) 04/02/18 00:30 Total Protein 8.1 g/dL (6.4-8.2) 04/02/18 00:30 Albumin 4.4 g/dL (3.4-5.0) 04/02/18 00:30 TSH 1.83 uIU/mL (0.358-3.74) 04/02/18 00:30 Urine Color Yellow (Yellow) 04/02/18 00:15 Urine Clarity Clear 04/02/18 00:15 Urine pH 7.0 (5-8) 04/02/18 00:15 Ur Specific [place] 1.020 (1.005-1.025) 04/02/18 00:15 Urine Protein Negative mg/dL (Negative) 04/02/18 00:15 Urine Ketones Negative mg/dL (Negative) 04/02/18 00:15 Urine Blood Negative (Negative) 04/02/18 00:15 Urine Nitrite Negative (Negative) 04/02/18 00:15 Urine Bilirubin Negative (Negative) 04/02/18 00:15 Urine Urobilinogen 2.0 EU/dL (Up TO 0.2) H 04/02/18 00:15 Ur Leukocyte Esterase Negative (Negative) 04/02/18 00:15 Urine Glucose Negative mg/dL (Negative) 04/02/18 00:15 Salicylates < 2.8 mg/dL (2.8-20.0) L 04/02/18 00:30 Urine Opiates Screen Negative (Negative) 04/02/18 00:15 Urine Methadone Screen Negative (Negative) 04/02/18 00:15 Acetaminophen < 2 ug/mL (10-30) L 04/02/18 00:30 Ur Barbiturates Screen Negative (Negative) 04/02/18 00:15 Ur Tricyclics Screen Negative (Negative) 04/02/18 00:15 Ur Amphetamines Screen Negative (Negative) 04/02/18 00:15 U Benzodiazepines Scrn Negative (Negative) 04/02/18 00:15 Urine Cocaine Screen Negative (Negative) 04/02/18 00:15 Ur THC Screen Positive (Negative) 04/02/18 00:15
--- NOTE | 2018-04-03 13:16 | PDOC.CMPRO ---
- If Service Date Differs Date of service: 04/03/18 Time of Service: 13:16 Care Management Progress Note Nakul is lying in bed this morning. Matt [facility] PRINTED PRODUCTS ASSEMBLER, has been in to meet with him. Nakul has been cooperative throughout discussion. He states that he wants to sleep. CM checked in with SHEBA Pfeiffer CC, as well as SHEBA Morris, Alexandra states that Nakul has been appropriate with interaction and that she does not feel as though the safety plan needs to be changed at this time. Nakul is also in agreement with the safety plan as previously outlined, as he states I just want to sleep Safety plan has been established with patient, and care team, to adhere to patient goals, identify restrictions based on behavioral status, address nutrition, and determine allowed personal belongings, tools for hygiene and personal care. Determine level of activity including ambulation, level of supervision, visitors, and determine privileges based on behaviors and level of engagement by pt. SAFETY PLAN: 1. Will remain on suicide precautions and in paper clothes. 2. Will remain in room under direct supervision of one-on-one staff at all times provided by KIRSTIN, ARJUN communications advisor. 3. May have paper cups, plates, finger foods as well as a metal spoon with which to eat meals. [facility] staff will be responsible for accounting of utensils after meals. 4. Follow [facility] Management of the Admitted Behavioral Health Patient policy. 5. Comfort bath system only. 6. No personal belongings 7. Limit visitors at this time - To readdress once patient is awake and able to engage in discussion 8. May have TV privileges [facility] will be coordinating placement at inpatient facility, last updates included the following: No beds at this time. Matt [facility] PRINTED PRODUCTS ASSEMBLER, states that [place], and [facility], continue to review Patient is currently voluntarily at [facility] and seeking inpatient admission when a bed becomes available. [facility] Frontline Cowlman will continue seeking placement. Please contact the Chlorinator Head Resident ([phone]) and [facility] Cowlman ([phone]) for any needed changes in the Safety Plan. Safety plan has been provided to interdepartmental care team including Clinical Coordinator , Nursing Cash Person.
--- NOTE | 2018-04-03 13:32 | CMPROGNOTE_ITS ---
- If Service Date Differs Date of service: 04/03/18 Time of Service: 13:16 Care Management Progress Note Nakul is lying in bed this morning. Matt [facility] SENIOR SYSTEMS ENGINEER, has been in to meet with him. Nakul has been cooperative throughout discussion. He states that he wants to sleep. CM checked in with SHEBA Pfeiffer CC, as well as SHEBA Morris, Alexandra states that Nakul has been appropriate with interaction and that she does not feel as though the safety plan needs to be changed at this time. Nakul is also in agreement with the safety plan as previously outlined, as he states I just want to sleep Safety plan has been established with patient, and care team, to adhere to patient goals, identify restrictions based on behavioral status, address nutrition, and determine allowed personal belongings, tools for hygiene and personal care. Determine level of activity including ambulation, level of supervision, visitors, and determine privileges based on behaviors and level of engagement by pt. SAFETY PLAN: 1. Will remain on suicide precautions and in paper clothes. 2. Will remain in room under direct supervision of one-on-one staff at all times provided by KIRSTIN, ARJUN online marketing director. 3. May have paper cups, plates, finger foods as well as a metal spoon with which to eat meals. [facility] staff will be responsible for accounting of utensils after meals. 4. Follow [facility] Management of the Admitted Behavioral Health Patient policy. 5. Comfort bath system only. 6. No personal belongings 7. Limit visitors at this time - To readdress once patient is awake and able to engage in discussion 8. May have TV privileges [facility] will be coordinating placement at inpatient facility, last updates included the following: No beds at this time. Matt [facility] SENIOR SYSTEMS ENGINEER, states that [place], and [facility], continue to review Patient is currently voluntarily at [facility] and seeking inpatient admission when a bed becomes available. [facility] Frontline Campus Security Director will continue seeking placement. Please contact the City Letter Carrier Flyer Repairer ([phone]) and [facility] Campus Security Director ([phone]) for any needed changes in the Safety Plan. Safety plan has been provided to interdepartmental care team including Clinical Coordinator , Nursing Cob Sawyer.
--- NOTE | 2018-04-03 14:30 | NUR.NOTE ---
Nursing Note: This nurse spoke with patient's CPSO that had stayed with him throughout the day. CPSO reported to this nurse that patient never went to the bathroom to void and during the shift patient asked if there was a real bathroom around here for him to use at which point CPSO offered to pull curtain for patient and bioinformaticist doorway to provide to maximum amount of privacy that could be provided. Patient declined this. Male CPSO is now taking over care. This nurse will continue to monitor. DIVYA Pfeiffer notified.
[2018-04-03 17:04] VITALS: BP 122/78; PULSE 70; RESP 17; TEMP 36.7; O2SAT 98
[2018-04-03 21:08] VITALS: BP 117/62; PULSE 71; RESP 14; TEMP 37.2; O2SAT 97
[2018-04-03] MEDS: QUEtiapine 300 MG TAB PO (21:14)
[2018-04-04 00:21] VITALS: BP 117/75; PULSE 69; RESP 19; TEMP 36.3; O2SAT 97
[2018-04-04] MEDS: Mylanta Suspension 30 ML CUP PO (00:33)
[2018-04-04 07:35] VITALS: BP 117/76; PULSE 75; RESP 18; TEMP 36.9; O2SAT 96
--- NOTE | 2018-04-04 11:42 | ERMH_ITS ---
Presenting issue: *How did they arrive here at ER and why did they come: Client arrived at [facility] Friday night around 11:50pm by ambulance with feelings of loneliness and SI Precipitating Factors: *Assessment of Safety SI / HI- (Address delusions if pertaining to the SI/ HI) Client is currently experiencing SI with no plan. Denies HI. Client stated he has been feeling lonely and depressed. Client stated he is inside and he 'doesn't feel feelings. Disposition: *Behavior: Client was laying down on a hospital bed with the blanket over his head. This Medical Accounts Receivable Specialist asked he remove the blanket to talk--he replaced it shortly after removing it from his face. Client was minimally communicative and reluctant to share information. *Eye Contact: There was no eye contact from the client and his head was under the blanket the majority of the evaluation. *Mood: Depressed *Affect: Appropriate given the situation *Appetite: Good *Sleep (trouble falling/staying asleep): States he had almost slept for 2 days straight, so its better. Plan: (please elaborate and include that physician is consulted with plan and/ or placement): [facility] just called and accepted him. We had done a huddle and the safety plan will continue in place with shower privileges until he is transported to [facility]. Provisional Diagnosis:(only if required by physician): AXIS 5 Case Handover: Done with ED nurse (name): Date & Time Huddle: done with ED staff (for ?boarding? clients): x Yes No Date/ Time 11:45 04/04/2018 Referral for Case management: Has phone call for introduction been made Yes No Referral in EMR: Done and sent? Yes NO Clinicians Name and title and Signature: Compa Monique MS, [facility] ROBOTIC WELDER emergency clinician Make sure that you are photocopying and submitting this to [facility] records dept.to be scanned into chart
--- NOTE | 2018-04-04 11:44 | PDOC.CMPRO ---
- If Service Date Differs Date of service: 04/04/18 Time of Service: 11:44 Care Management Progress Note Safety Plan 04/04/2018 VOLUNTARY FOR INPATIENT PSYCHIATRIC STABILIZATION. Safety plan has been established with patient, and care team, to adhere to patient goals, identify restrictions based on behavioral status, address nutrition, and determine allowed personal belongings, tools for hygiene and personal care. Determine level of activity including ambulation, level of supervision, visitors, and determine privileges based on behaviors and level of engagement by pt. Huddle held 04/04/2018 at 11:30am. Participants: Dorene, [facility] FLORIAN, Faina RN Melonie RUVALCABA, Clinical Coordinator, Janel, Nursing Dairy Department Manager, SHEBA Marshall. [facility] HOSE COUPLING JOINER worker, Dorene, has been in to see Nakul this morning. JORDON visited with Nakul and he was cooperative and appropriate. He is not willing to answer whether or not he is suicidal/homicidal but indicated that he is the same as he has been, meaning suicidal/homicidal. Safety plan reviewed with Naklu and he is in agreement as outlined. 1. Will remain on suicide precautions and in paper clothes. 2. Will remain in room under direct supervision of one-on-one staff at all times provided by KIRSTIN, ARJUN mat inspector. 3. May have paper cups, plates, finger foods as well as a metal spoon with which to eat meals. [facility] staff will be responsible for accounting of utensils after meals. 4. Follow [facility] Management of the Admitted Behavioral Health Patient policy. 5. Pt may shower with supervision (outside of door). Door not to be closed all the way. 6. No personal belongings. May have playing cards, crayons and paper. 7. No visitors at this time. 8. May have TV privileges. [facility] will be coordinating placement at inpatient facility. Patient is currently voluntarily at [facility] and seeking inpatient admission when a bed becomes available. [facility] Frontline Cobol Application Developer will continue seeking placement. Please contact the Weight Analyst Metal Fabricating Inspector ([phone]) and [facility] Cobol Application Developer ([phone]) for any needed changes in the Safety Plan. Safety plan has been provided to interdepartmental care team including Clinical Coordinator , Nursing Dairy Department Manager.
--- NOTE | 2018-04-04 11:50 | W.PM.PROGNOT ---
Assessment and Plan (1) Discharge planning issues: Current visit: Yes Status: Acute awaiting psychiatric inpatient treatment for depression/suicidal ideation, continue 1:1 sitter (2) Suicidal ideation: Current visit: Yes Status: Acute continue 1:1 sitter with suicidal precautions (3) Gastroesophageal reflux disease: Current visit: No Status: Acute stable. can have mylanta ericn Subjective Patient reports: no new complaints Interval history since last seen: This is a 22-year-old gentleman with a history of PTSD suicidal ideation under the care of [facility] services who has been noncompliant with his Seroquel since Friday started feeling paranoid and with suicidal ideation, awaiting psychiatric inpatient treatment. Medically he has been stable he has been eating and drinking bowels and bladder are functioning he is voicing no complaints of chest pain shortness of breath abdominal pain nausea vomiting diarrhea or constipation he states that he feels safe at this time he continues to have a one-to-one sitter has been pleasant cooperative. Exam Const General: cooperative, comfortable and no acute distress Nutritional Appearance: overweight Orientation: alert, awake and oriented x3 HENMT Mouth: moist mucous membranes Neck Neck: normal visual inspection Chest Chest: normal inspection of the chest Resp Effort & Inspection: normal respiratory effort and able to speak in complete sentences Auscultation: clear to auscultation bilaterally Cardio Rate: regular rate Rhythm: regular rhythm GI Inspection: normal to inspection Palpation: soft Auscultation: normal bowel sounds Skin General skin exam: no rashes or lesions noted Neuro General: alert, awake and oriented x3 Motor: muscle tone normal throughout and strength 5/5 throughout Extrem General: normal to inspection and full ROM Psych Appearance: grossly normal Speech and Movement: speech and movement normal Mood: congruent mood Affect: normal affect Attitude: cooperative Objective Objective Clinical Data: Vital Signs Temperature 36.9 C 04/04/18 07:35 Temperature Source Tympanic 04/04/18 07:35 Pulse 75 04/04/18 07:35 Pulse Rhythm Regular 04/04/18 10:00 Respiratory Rate 18 04/04/18 07:35 Respiratory Effort Non-Labored 04/04/18 10:00 Respiratory Depth Normal 04/04/18 10:00 Respiratory Pattern Normal 04/04/18 10:00 Blood Pressure 117/76 04/04/18 07:35 Blood Pressure Position Sitting 04/02/18 00:05 Pulse Oximetry 96 04/04/18 07:35 Oxygen Delivery Method Room Air 04/04/18 07:35 Oxygen Flow Rate 0 04/04/18 07:35 Pain Level 0 04/02/18 20:27 Comment 04/02/18 20:27 Intake & Output 04/03/18 04/03/18 04/04/18 11:59 23:59 11:59 Intake Total 1620 / 1620 Balance 1620 / 1620 Intake: Oral 1620 / 1620 Other: Comment Patient states he has voided x 1 this shift. reports voiding x1 Laboratory Results WBC 8.94 k/cumm (4.4-10.8) 04/02/18 00:30 RBC 5.76 m/cumm (4.50-6.00) 04/02/18 00:30 Hgb 16.6 g/dL (13.5-17.5) 04/02/18 00:30 Hct 47.9 % (40.0-50.0) 04/02/18 00:30 MCV 83.2 fL (80-95) 04/02/18 00:30 MCH 28.8 pg (27.0-33.0) 04/02/18 00:30 MCHC 34.7 g/dL (32.0-36.0) 04/02/18 00:30 RDW 13.6 % (11.8-14.1) 04/02/18 00:30 Plt Count 316 x1000/uL (130-400) 04/02/18 00:30 MPV 11.1 fL (8.0-11.0) H 04/02/18 00:30 Immature Gran % 0.1 04/02/18 00:30 Neutrophils % 50.7 04/02/18 00:30 Lymphocytes % 37.8 04/02/18 00:30 Monocytes % 8.9 04/02/18 00:30 Eosinophils % 2.3 04/02/18 00:30 Basophils % 0.2 04/02/18 00:30 Absolute Neutrophils 4.52 k/cumm (1.2-6.7) 04/02/18 00:30 Absolute Lymphocytes 3.38 k/cumm (1.2-3.4) 04/02/18 00:30 Absolute Monocytes 0.80 k/cumm (0.11-0.7) H 04/02/18 00:30 Absolute Eosinophils 0.21 k/cumm (0.0-0.7) 04/02/18 00:30 Absolute Basophils 0.02 k/cumm (0.0-0.2) 04/02/18 00:30 Sodium 140 mmol/L (136-145) 04/02/18 00:30 Potassium 3.8 mmol/L (3.5-5.1) 04/02/18 00:30 Chloride 103 mmol/L (98-107) 04/02/18 00:30 Carbon Dioxide 27.4 mmol/L (21.0-32.0) 04/02/18 00:30 Anion Gap 9.6 mmol/L (3-11) 04/02/18 00:30 BUN 8 mg/dL (7-18) 04/02/18 00:30 Creatinine 0.86 mg/dL (0.70-1.30) 04/02/18 00:30 Estimated GFR/1.73 m2 >= 60.00 (mL/min/1.73m2) 04/02/18 00:30 Glucose 94 mg/dL (70-100) 04/02/18 00:30 Calcium 9.2 mg/dL (8.5-10.1) 04/02/18 00:30 Total Bilirubin 0.4 mg/dL (0.2-1.0) 04/02/18 00:30 AST 18 U/L (15-37) 04/02/18 00:30 ALT 45 U/L (12-78) 04/02/18 00:30 Alkaline Phosphatase 94 U/L (46-116) 04/02/18 00:30 Total Protein 8.1 g/dL (6.4-8.2) 04/02/18 00:30 Albumin 4.4 g/dL (3.4-5.0) 04/02/18 00:30 TSH 1.83 uIU/mL (0.358-3.74) 04/02/18 00:30 Urine Color Yellow (Yellow) 04/02/18 00:15 Urine Clarity Clear 04/02/18 00:15 Urine pH 7.0 (5-8) 04/02/18 00:15 Ur Specific [place] 1.020 (1.005-1.025) 09/27/18 00:15 Urine Protein Negative mg/dL (Negative) 04/02/18 00:15 Urine Ketones Negative mg/dL (Negative) 04/02/18 00:15 Urine Blood Negative (Negative) 04/02/18 00:15 Urine Nitrite Negative (Negative) 04/02/18 00:15 Urine Bilirubin Negative (Negative) 04/02/18 00:15 Urine Urobilinogen 2.0 EU/dL (Up TO 0.2) H 04/02/18 00:15 Ur Leukocyte Esterase Negative (Negative) 04/02/18 00:15 Urine Glucose Negative mg/dL (Negative) 04/02/18 00:15 Salicylates < 2.8 mg/dL (2.8-20.0) L 04/02/18 00:30 Urine Opiates Screen Negative (Negative) 04/02/18 00:15 Urine Methadone Screen Negative (Negative) 04/02/18 00:15 Acetaminophen < 2 ug/mL (10-30) L 04/02/18 00:30 Ur Barbiturates Screen Negative (Negative) 04/02/18 00:15 Ur Tricyclics Screen Negative (Negative) 04/02/18 00:15 Ur Amphetamines Screen Negative (Negative) 04/02/18 00:15 U Benzodiazepines Scrn Negative (Negative) 04/02/18 00:15 Urine Cocaine Screen Negative (Negative) 04/02/18 00:15 Ur THC Screen Positive (Negative) 04/02/18 00:15
--- NOTE | 2018-04-04 11:52 | CMPROGNOTE_ITS ---
- If Service Date Differs Date of service: 04/04/18 Time of Service: 11:44 Care Management Progress Note Safety Plan 04/04/2018 VOLUNTARY FOR INPATIENT PSYCHIATRIC STABILIZATION. Safety plan has been established with patient, and care team, to adhere to patient goals, identify restrictions based on behavioral status, address nutrition, and determine allowed personal belongings, tools for hygiene and personal care. Determine level of activity including ambulation, level of supervision, visitors, and determine privileges based on behaviors and level of engagement by pt. Huddle held 04/04/2018 at 11:30am. Participants: Dorene, [facility] FLORIAN, Faina RN Melonie RUVALCABA, Clinical Coordinator, Janel, Nursing Under Cutter, SHEBA Marshall. [facility] MARINE CONSULTANT worker, Dorene, has been in to see Nakul this morning. JORDON visited with Nakul and he was cooperative and appropriate. He is not willing to answer whether or not he is suicidal/homicidal but indicated that he is the same as he has been, meaning suicidal/homicidal. Safety plan reviewed with Nakul and he is in agreement as outlined. 1. Will remain on suicide precautions and in paper clothes. 2. Will remain in room under direct supervision of one-on-one staff at all times provided by KIRSTIN, ARJUN dust mill operator. 3. May have paper cups, plates, finger foods as well as a metal spoon with which to eat meals. [facility] staff will be responsible for accounting of utensils after meals. 4. Follow [facility] Management of the Admitted Behavioral Health Patient policy. 5. Pt may shower with supervision (outside of door). Door not to be closed all the way. 6. No personal belongings. May have playing cards, crayons and paper. 7. No visitors at this time. 8. May have TV privileges. [facility] will be coordinating placement at inpatient facility. Patient is currently voluntarily at [facility] and seeking inpatient admission when a bed becomes available. [facility] Frontline Human Services Worker will continue seeking placement. Please contact the Bartender Helper Road Train Driver ([phone]) and [facility] Human Services Worker ([phone]) for any needed changes in the Safety Plan. Safety plan has been provided to interdepartmental care team including Clinical Coordinator , Nursing Under Cutter.
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
== END 2018-04-04 14:40 | disposition short-term general hospital (02) ==
LOC: ER 19:18 → MS 20:17
PROVIDERS: Student in an Organized Health Care Education/Training Program; Admitting Provider Family Medicine; Emergency Provider Physician Assistant; PCP Nurse Practitioner Family; Visit Provider Family Medicine
DX: R45.851 Suicidal ideations (principal); G47.00 Insomnia, unspecified; F43.29 Adjustment disorder with other symptoms; F43.10 Post-traumatic stress disorder, unspecified
CPT/HCPCS: 36415; 80053; 80307; 99222; 99232; 99238; 99285; 80329; 81003; 84443; 85025; 99217; 99219; 99235; 99284; G0378; J3490

== ENCOUNTER 2018-04-15 15:15 | Emergency (ER) | payer MEDICAID, SELFPAY ==
[2018-04-15 15:17] VITALS: BP 128/76; PULSE 103; RESP 18; TEMP 37; O2SAT 94
--- NOTE | 2018-04-15 15:22 | NUR.NOTE ---
Nursing Note: pt is a [employer] client.
[2018-04-15 16:00] VITALS: RESP 18
[2018-04-15 18:00] LABS: Abs Immature Grans 0.05 k/cumm (0.0-0.09); Absolute Basophil Count 0.03 k/cumm (0.0-0.2); Basophils % 0.2; Eosinophils % 0.6; HCT 46.1 % (40.0-50.0); Immature Grans % 0.3; Lymphocytes % 8.2; Mean Corp. HGB Concentration 34.7 g/dL (32.0-36.0); Mean Corpuscular Volume 83.5 fL (80-95); Mean Platelet Volume 10.5 fL (8.0-11.0); Monocytes % 6.9; Neutrophils % 83.8; Platelet Count 293 x1000/uL (130-400); RBC 5.52 m/cumm (4.50-6.00); RBC Distribution Width 14.1 % (11.8-14.1); White Blood Cell Count 17.03 k/cumm (4.4-10.8)
[2018-04-15] MEDS: Normal Saline 1,000 ML 1000 ML IV (18:00)
[2018-04-15 18:04] LABS: Absolute Monocyte Count 1.18 k/cumm (0.11-0.7); Absolute Neutrophil Count 14.27 k/cumm (1.2-6.7)
[2018-04-15 18:09] LABS: Lithium 0.58 mmol/L (0.60-1.20)
[2018-04-15 18:16] LABS: ALT 66 U/L (12-78); AST 26 U/L (15-37); Albumin 3.9 g/dL (3.4-5.0); Alkaline Phosphatase 84 U/L (46-116); Anion Gap 6.6 mmol/L (3-11); BUN 15 mg/dL (7-18); Bilirubin, Total 0.4 mg/dL (0.2-1.0); CO2 30.4 mmol/L (21.0-32.0); CREATININE 0.89 mg/dL (0.70-1.30); Calcium 9.3 mg/dL (8.5-10.1); Chloride 102 mmol/L (98-107); Glucose 100 mg/dL (70-100); Potassium 4.5 mmol/L (3.5-5.1); Sodium 139 mmol/L (136-145); Total Protein 7.6 g/dL (6.4-8.2)
--- NOTE | 2018-04-15 18:52 | ED.GENADUL_ITS ---
Discharge Plan Disposition Patient Disposition: HOME Condition: Stable Discharge Details Chief Complaint: GenMedical Clinical Impression: Adverse reaction to cannabis Primary Care Provider: Javon Rosen ED Provider: Kemal Dalal Home Meds and New Rx's Prescriptions: Continue lithium carbonate 450 mg Tablet Extended Release 450 mg PO DAILY RF: 0 quetiapine [Seroquel] 50 mg Tablet 50 mg PO TID RF: 0 quetiapine [Seroquel] 400 mg Tablet 400 mg PO .QHS RF: 0 Discharge Instructions Instructions: Cannabis Abuse (ED) Additional Instructions: Return immediately to the emergency department for any new or worsening symptoms including fever chills, cold or illness type symptoms, or other concerns he may have. Otherwise continue to take medication as prescribed and follow-up with your primary care provider for reassessment. Referrals: Javon Rosen DO [Primary Care Provider] - 1 week (If not improving or any other concerns call your primary care provider for reassessment) Discharge Data Discharge Date/Time-TO BE ENTERED AT DEPARTURE: 04/15/18 19:10 Medical Decision Making Patient presenting to the emergency department for chief complaint of shaking all over. Patient states prior to this he had smoked significantly more marijuana than he normally smokes and then took his lithium and Seroquel. He had an episode of shaking for 15 minutes but remembers the whole event, denies any loss of consciousness, abnormal behaviors, or other symptoms. Patient states that he is now asymptomatic and has no complaints of pain discomfort or illness. Physical exam is unremarkable for any neurologic cardiac respiratory or other obvious findings. Plan to check patient's lithium level and labs along with giving IV fluids. After review of labs that show a leukocytosis which I believe is more reactive than any acute illness patient was reassessed. Patient continues to remain asymptomatic and states no complaints at this time. Given that patient is denying any illness type symptoms again I feel that this is a reactive leukocytosis but patient was strongly encouraged to return for any fever chills , worsening condition, or signs or symptoms of illness. Otherwise I feel that patient can follow-up with his primary care provider for reassessment. Of notation was a barely lower than normal lithium level which patient was encouraged to take his lithium on his normally scheduled basis. After discussion of diagnosis and plan of care patient has no further needs, questions , or concerns and states clear understanding to return to the emergency department for any worsening symptoms. HPI General Mode of arrival: EMS . Date/Time Provider Initiated Documentation: 04/15/18 15:23 . Limitations to Documentation: no limitations . Information obtained by: patient . History of Present Illness 22 year old M presents to the emergency department with the chief complaint of Shaking all over, described as moderate, and it has been now resolved. Patient did receive the following treatments prior to arrival, none Related Data Home Medications Medication Instructions Recorded Confirmed lithium carbonate 450 mg PO DAILY 04/15/18 04/15/18 quetiapine [Seroquel] 50 mg PO TID 04/15/18 04/15/18 quetiapine [Seroquel] 400 mg PO .QHS 04/15/18 04/15/18 Allergies Allergy/AdvReac Type Severity Reaction Status Date / Time No Known Allergies Allergy Unverified 04/15/18 15:21 General Stated Complaint: GenMedical JHONATHAN: 3 Review of Systems Constitutional Denies body ache(s), Denies chills, Denies fever(s), Denies headache(s) and Reports other (All over shaking) ENT Denies headache(s), Denies nasal congestion, Denies nasal discharge and Denies neck pain Cardiovascular Denies chest pain and Denies dyspnea Respiratory Denies cough and Denies dyspnea Gastrointestinal Denies abdominal pain, Denies nausea and Denies vomiting Musculoskeletal Denies neck pain Integumentary/Breasts Denies rash Neurologic Denies confusion, Denies headache(s) and Denies sensory deficit Psychiatric Denies confusion [facility] Medical History PTSD (post-traumatic stress disorder) (Acute 02/19/18) Insomnia (Acute 02/19/18) Gastroesophageal reflux disease (Acute 02/19/18) Adjustment disorder with emotional disturbance (Acute 02/19/18) At high risk for suicide (Acute) Social History foster care: Yes housing: apartment lives independently: Yes Smoking/Tobacco Use Status: Current every day tobacco type: cigarettes substance use type: marijuana additional social history: Smokes 1 pack/day, rare alcohol, occasional marijuana, no drugs of abuse. Exam Const General: cooperative, no acute distress and not ill appearing Orientation: alert, awake and oriented x3 HENMT Mouth: moist mucous membranes Neck Neck: normal visual inspection, full ROM, no lymphadenopathy and no meningeal signs Resp Effort & Inspection: normal respiratory effort, able to speak in complete sentences and no respiratory distress Cardio Rate: regular rate Rhythm: regular rhythm Heart Sounds: S1 normal and S2 normal Skin General skin exam: no rashes or lesions noted Neuro General: alert, awake, oriented x3, gait normal, moves all extremities, no meningeal signs, no focal motor deficits and not confused Cranial Nerves: CN's II-XI intact bilaterally Sensory Exam: no sensory deficits noted Course Vital Signs Temperature 37.0 C 04/15/18 15:17 Pulse 103 H 04/15/18 15:17 Respiratory Rate 18 04/15/18 15:17 Blood Pressure 128/76 04/15/18 15:17 Pulse Oximetry 94 L 04/15/18 15:17 Temperature 37.0 C 04/15/18 15:17 Temperature Source Skin 04/15/18 15:17 Pulse 103 H 04/15/18 15:17 Respiratory Rate 18 04/15/18 15:17 Respiratory Effort 04/15/18 15:20 Blood Pressure 128/76 04/15/18 15:17 Pulse Oximetry 94 L 04/15/18 15:17 Oxygen Delivery Method Room Air 04/15/18 15:17 Oxygen Flow Rate 0 04/15/18 15:17 Pain Level 0 04/15/18 15:17 Lab/Test Results Lab/Test Results: Laboratory Tests Range/Units 04/15/18 04/15/18 04/15/18 17:45 17:45 17:45 WBC (4.4-10.8) k/cumm 17.03 H RBC (4.50-6.00) m/cumm 5.52 Hgb (13.5-17.5) g/dL 16.0 Hct (40.0-50.0) % 46.1 MCV (80-95) fL 83.5 MCH (27.0-33.0) pg 29.0 MCHC (32.0-36.0) g/dL 34.7 RDW (11.8-14.1) % 14.1 Plt Count (130-400) x1000/uL 293 MPV (8.0-11.0) fL 10.5 Immature Gran % 0.3 Neutrophils % 83.8 Lymphocytes % 8.2 Monocytes % 6.9 Eosinophils % 0.6 Basophils % 0.2 Absolute Neutrophils (1.2-6.7) k/cumm 14.27 H Absolute Lymphocytes (1.2-3.4) k/cumm 1.40 Absolute Monocytes (0.11-0.7) k/cumm 1.18 H Absolute Eosinophils (0.0-0.7) k/cumm 0.10 Absolute Basophils (0.0-0.2) k/cumm 0.03 Sodium (136-145) mmol/L 139 Potassium (3.5-5.1) mmol/L 4.5 Chloride (98-107) mmol/L 102 Carbon Dioxide (21.0-32.0) mmol/L 30.4 Anion Gap (3-11) mmol/L 6.6 BUN (7-18) mg/dL 15 Creatinine (0.70-1.30) mg/dL 0.89 Estimated GFR/1.73 m2 (mL/min/1.73m2) >= 60.00 Glucose (70-100) mg/dL 100 Calcium (8.5-10.1) mg/dL 9.3 Total Bilirubin (0.2-1.0) mg/dL 0.4 AST (15-37) U/L 26 ALT (12-78) U/L 66 Alkaline Phosphatase (46-116) U/L 84 Total Protein (6.4-8.2) g/dL 7.6 Albumin (3.4-5.0) g/dL 3.[address] [place] [address] (0.60-1.20) mmol/L 0.58 L
[2018-04-15 19:05] VITALS: BP 126/78; PULSE 99; RESP 18; O2SAT 94
== END 2018-04-15 19:10 | disposition home or self-care (01) ==
PROVIDERS: Emergency Provider Nurse Practitioner Family; PCP Family Medicine
DX: G25.1 Drug-induced tremor (principal); T40.7X5A Adverse effect of cannabis (derivatives), initial encounter
CPT/HCPCS: 36415; 80053; 96360; 99284; 80178; 85025

== ENCOUNTER 2018-04-21 13:27 | Emergency (ER) | payer MEDICAID, SELFPAY ==
[2018-04-21 13:29] VITALS: BP 126/84; PULSE 86; RESP 17; TEMP 37
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
[2018-04-21] MEDS: Omnipaque 350 MG/ML 100 ML BTL IJ (16:52)
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
[2018-04-21 17:35] VITALS: BP 132/93; PULSE 94; RESP 16; TEMP 37; O2SAT 98
== END 2018-04-21 17:33 | disposition home or self-care (01) ==
PROVIDERS: Emergency Provider Nurse Practitioner Family; PCP Family Medicine
DX: S00.83XA Contusion of other part of head, initial encounter (principal); S30.1XXA Contusion of abdominal wall, initial encounter; S10.93XA Contusion of unspecified part of neck, initial encounter; V03.10XA Pedestrian on foot injured in collision with car, pick-up truck or van in traffic accident, initial encounter
CPT/HCPCS: 74177; 99285; 70450; 70486; 71260; 72125; J3490

== ENCOUNTER 2018-04-22 09:39 | Outpatient (CLI) | payer MEDICAID, SELFPAY ==
[2018-04-22 11:13] LABS: HCT 46.5 % (40.0-50.0); HGB 15.7 g/dL (13.5-17.5); Mean Corp. HGB Concentration 33.8 g/dL (32.0-36.0); Mean Corpuscular Hemoglobin 28.6 pg (27.0-33.0); Mean Corpuscular Volume 84.9 fL (80-95); Mean Platelet Volume 10.8 fL (8.0-11.0); Platelet Count 327 x1000/uL (130-400); RBC 5.48 m/cumm (4.50-6.00); RBC Distribution Width 14.1 % (11.8-14.1); White Blood Cell Count 8.65 k/cumm (4.4-10.8)
[2018-04-22 11:39] LABS: Hemoglobin A1C 5.5 % (4.5-6.2)
[2018-04-22 12:10] LABS: Lithium 0.66 mmol/L (0.60-1.20)
[2018-04-22 12:55] LABS: ALT 46 U/L (12-78); AST 15 U/L (15-37); Albumin 3.9 g/dL (3.4-5.0); Alkaline Phosphatase 85 U/L (46-116); BUN 10 mg/dL (7-18); Bilirubin, Total 0.5 mg/dL (0.2-1.0); Calcium 9.4 mg/dL (8.5-10.1); Chloride 105 mmol/L (98-107); Glucose 92 mg/dL (70-100); Potassium 4.1 mmol/L (3.5-5.1); Sodium 142 mmol/L (136-145); TSH 1.55 uIU/mL (0.358-3.74); Total Protein 7.3 g/dL (6.4-8.2)
== END 2018-04-22 09:59 ==
PROVIDERS: PCP Family Medicine; Visit Provider Nurse Practitioner Psychiatric/Mental Health
DX: F31.81 Bipolar II disorder (principal); Z51.81 Encounter for therapeutic drug level monitoring; Z79.899 Other long term (current) drug therapy
CPT/HCPCS: 36415; 80053; 85027; 80178; 83036; 84443

== ENCOUNTER 2018-05-05 23:33 | Emergency (ER) | payer MEDICAID, SELFPAY ==
--- NOTE | 2018-05-05 23:31 | W.ED.GENAD ---
Discharge Plan Disposition Patient Disposition: HOME Condition: Improving Discharge Details Chief Complaint: DentalOral Clinical Impression: Impacted molar Reason For Visit: CHEKO Primary Care Provider: Javon Rosen ED Provider: Kemal Dalal Home Meds and New Rx's Prescriptions: New penicillin V potassium 500 mg tablet 500 mg PO QID 7 Days Qty: 28 RF: 0 ibuprofen [IBU] 600 mg tablet 600 mg PO QID PRN (Reason: pain) Qty: 20 RF: 0 Continue lithium carbonate 450 mg Tablet Extended Release 450 mg PO BID RF: 0 quetiapine [Seroquel] 50 mg Tablet 50 mg PO TID RF: 0 quetiapine [Seroquel] 400 mg Tablet 400 mg PO .QHS RF: 0 Discharge Instructions Instructions: Toothache (ED) Additional Instructions: Take antibiotics as prescribed and complete full course of therapy. It is very important that you follow-up with a dentist as soon as possible for arrangement of evaluation and possible recommendation for dental extraction. Follow-up with your primary care provider as needed for reassessment and return to emergency department for any new or significant worsening of symptoms. Referrals: Javon Rosen DO [Primary Care Provider] - (As needed for reassessment) Discharge Data Discharge Date/Time-TO BE ENTERED AT DEPARTURE: 05/06/18 00:15 Medical Decision Making Patient presenting to the emergency department via EMS for complaint of dental pain. Patient states that 2 days ago his right rear molar began hurting and he has noticed some swelling around the tooth. Patient denies any fever chills, difficulty swallowing, swelling of his neck tongue or throat. Physical exam is positive for impacted wisdom tooth #32 otherwise no signs of Cornelio's angina, peritonsillar abscess, retropharyngeal abscess apical otitis, mastoiditis, or other acute findings. There is some erythema and edema surrounding the tooth but no obvious drainage and no obvious fluctuance noted. There is concern for possible infection so patient placed on penicillin VK 500 mg 4 times daily for 7 days. For pain control did discuss risks versus benefits with patient of dental block and patient gave verbal consent for procedure. Topical Hurricaine gel was placed at the base of tooth #32 and after appropriate amount of waiting 1 mL of 50% 1% lidocaine and 50% 0.5% Marcaine was injected at the base of the tooth for periapical block. Patient only had mild bleeding complications otherwise was reassessed shortly after injection and stated significant relief and reduction of pain. Patient was encouraged to contact dentist immediately tomorrow for referral to oral surgeon or for removal of the tooth and to take antibiotics as prescribed. Patient to return for any new or significant worsening of symptoms. After discussion of diagnosis and plan of care patient has no further needs, questions, or concerns and states clear understanding to return to the emergency department for any worsening symptoms. HPI General Mode of arrival: EMS. Date/Time Provider Initiated Documentation: 05/05/18 23:54. Limitations to Documentation: no limitations. Information obtained by: patient, EMS and RN notes reviewed. History of Present Illness 22 year old M presents to the emergency department with the chief complaint of Dental pain, described as severe, with intensity rated at 10. Quality is described as sharp, and is localized to the mouth. Patient started experiencing this day(s) (2) and it has been constant. No relieving factors improve symptom(s), Patient notes no other symptoms.. Related Data Home Medications Medication Instructions Recorded Confirmed lithium carbonate 450 mg PO BID 04/15/18 05/05/18 quetiapine [Seroquel] 50 mg PO TID 04/15/18 05/05/18 quetiapine [Seroquel] 400 mg PO .QHS 04/15/18 05/05/18 ibuprofen [IBU] 600 mg PO QID PRN #20 tab 05/06/18 penicillin V potassium 500 mg PO QID 7 Days #28 tab 05/06/18 Previous Rx's Medication Instructions Recorded ibuprofen [IBU] 600 mg PO QID PRN #20 tab 05/06/18 penicillin V potassium 500 mg PO QID 7 Days #28 tab 05/06/18 Allergies Allergy/AdvReac Type Severity Reaction Status Date / Time No Known Allergies Allergy Unverified 05/05/18 23:39 General JHONATHAN: 3 Review of Systems Constitutional Denies chills and Denies fever(s) ENT Reports as per HPI, Denies change in voice, Reports dental pain, Denies dysphagia, Denies throat swelling and Denies tongue swelling Cardiovascular Denies chest pain and Denies dyspnea Respiratory Denies dyspnea Gastrointestinal Denies dysphagia Integumentary/Breasts Denies rash Allergic/Immunologic Denies throat swelling and Denies tongue swelling [facility] Medical History PTSD (post-traumatic stress disorder) (Acute 02/19/18) Insomnia (Acute 02/19/18) Gastroesophageal reflux disease (Acute 02/19/18) Adjustment disorder with emotional disturbance (Acute 02/19/18) At high risk for suicide (Acute) Social History foster care: Yes housing: apartment lives independently: Yes Smoking/Tobacco Use Status: Current every day tobacco type: cigarettes substance use type: marijuana additional social history: Smokes 1 pack/day, rare alcohol, occasional marijuana, no drugs of abuse. Exam Const General: cooperative Orientation: alert, awake and oriented x3 Limitations: mental status not altered HENMT Head: normal to inspection, normocephalic and atraumatic Ears: hearing grossly normal bilaterally, normal mastoids bilaterally and no periauricular adenopathy General nose exam: external nose normal Mouth: oropharynx normal, no drooling, no muffled voice, normal tongue and no trismus Teeth and gingiva: other (impacted wisdom tooth #32 with swelling and erythema) Throat: posterior oropharynx normal, tonsils normal and uvula midline Eyes General: appearance normal, both eyes and all related structures Pupils: PERRL Neck Neck: normal visual inspection, full ROM, no lymphadenopathy, no meningeal signs, trachea midline, supple, no anterior neck swelling and no midline deformity Resp Effort & Inspection: normal respiratory effort and able to speak in complete sentences
[2018-05-05 23:35] VITALS: BP 164/98; PULSE 105; RESP 18; TEMP 36.8; O2SAT 97
[2018-05-05] MEDS: Penicillin V POTASSIUM 500 MG TAB 1000 MG (23:47)
[2018-05-05] MEDS: Bupivacaine 0.5% Pres-Free 30 ML VIAL (23:48)
== END 2018-05-06 00:15 | disposition home or self-care (01) ==
LOC: ER 05-06 00:18
PROVIDERS: Emergency Provider Nurse Practitioner Family; PCP Family Medicine
DX: K01.1 Impacted teeth (principal)
CPT/HCPCS: 99283

== ENCOUNTER 2023-12-08 12:06 | Emergency (ER) | payer MEDICAID, SELFPAY ==
[2023-12-08 12:15] VITALS: BP 128/74; PULSE 61; RESP 18; TEMP 36.8; O2SAT 100
--- NOTE | 2023-12-08 12:25 | ED.GENADUL_ITS ---
Discharge Plan Disposition Patient Disposition: Home Condition: Stable Discharge Details Clinical Impression: Narcotic withdrawal Primary Care Provider: Unknown,Unknown ED Provider: Sofia Bates Home Meds and New Rx's Prescriptions: Continued quetiapine [Seroquel] 50 mg Tablet 100 mg PO DAILY ibuprofen [IBU] 600 mg tablet 600 mg PO QID PRN (Reason: pain) Qty: 20 0RF lamotrigine [Lamictal] 100 mg tablet 100 mg PO DAILY methadone 10 mg/mL concentrate 70 mg PO DAILY Patient Comments: dispensed at [facility]- unconfirmed, pt reported Discharge Instructions Instructions: Narcotic Withdrawal (ED) Additional Instructions: Please follow-up with the [facility] as previously discussed. We did speak with the [facility] here in [place] they agreed to see you in the morning for redosing. Please take Tylenol or Ibuprofen with food every 4-6 hours as needed for pain and swelling. Follow up with primary care provider in 3-5 days. Return to ED sooner if any worsening or concerns. Referrals: [facility] [Outside] Discharge Data Discharge Date/Time-TO BE ENTERED AT DEPARTURE: 12/08/23 13:17 HPI General Mode of arrival: ambulatory . Date/Time Provider Initiated Documentation: 12/08/23 12:17 . Limitations to Documentation: no limitations . Information obtained by: patient, RN notes reviewed and old records reviewed . HPI Narrative: 28-year-old male presents to the ER with chief complaint of requesting methadone and having drug withdrawal. He does endorse fentanyl and crack 12/07/2023. He does have a past medical history of PTSD, adjustment disorder emotional disturbance, GERD, insomnia. He is alert and oriented x 3, denies any nausea vomiting diarrhea, his pupils are 6 mm bilaterally and sluggish. Denies any alcohol currently. He is reporting pain, everywhere. He has not taken any Tylenol or ibuprofen. Denies any recent trauma. Related Data Home Medications Medication Instructions Recorded Confirmed quetiapine 50 mg tablet (Seroquel) 100 mg PO DAILY 04/15/18 12/08/23 ibuprofen 600 mg tablet (IBU) 600 mg PO QID PRN pain #20 tabs 05/06/18 12/08/23 lamotrigine 100 mg tablet 100 mg PO DAILY 12/08/23 12/08/23 (Lamictal) methadone 10 mg/mL oral concentrate 70 mg PO DAILY 12/08/23 12/08/23 Previous Rx's Medication Instructions Recorded ibuprofen 600 mg tablet (IBU) 600 mg PO QID PRN pain #20 tabs 05/06/18 Allergies Allergy/AdvReac Type Severity Reaction Status Date / Time No Known Allergies Allergy Unverified 12/08/23 12:17 General Stated Complaint: DrugWithdr/MAT JHONATHAN: 4 Review of Systems All systems reviewed & are unremarkable except as noted in HPI and below Constitutional Constitutional: Reports body ache(s), Reports headache(s) and Reports poor appetite ENT Ears, Nose, Mouth, and Throat: Reports headache(s) Cardiovascular Cardiovascular: Reports as per HPI Respiratory Respiratory: Denies chest congestion and Denies cough Gastrointestinal Gastrointestinal: Denies diarrhea, Denies nausea and Denies vomiting Neurologic Neurologic: Reports as per HPI and Reports headache(s) Exam Narrative Exam Narrative: Constitutional: Alert and oriented x3. Appears stated age. Normal body habitus. Head: Normocephalic, no trauma. Eyes: Pupils PERRL, pupils 6 mm bilaterally, sluggish, Red reflex noted, EOM's intact. Eyelids symmetrical without lesions, discharge, or swelling. Chest: RRR, Normal S1, S2, distal pulses intact. Resp: Breathing Eupneic, speaks in full sentences Abdomen: Soft, non-distended, Musculoskeletal: Moves all 4 extremities without difficulty. Skin: No suspicious rashes or lesions. Capillary refill less than 2 sec. Neurologic: Alert and oriented x 3. Motor: No deficits noted. Sensory: Intact bilaterally all 4 extremities. Course Vital Signs Vital signs: Vital Signs Temperature 36.8 C 12/08/23 12:15 Pulse 61 12/08/23 12:15 Respiratory Rate 18 12/08/23 12:15 Blood Pressure 128/74 12/08/23 12:15 Pulse Oximetry 100 12/08/23 12:15 Temperature 36.8 C 12/08/23 12:15 Temperature Source Skin 12/08/23 12:15 Pulse 61 12/08/23 12:15 Respiratory Rate 18 12/08/23 12:15 Respiratory Effort Normal, Non-Labored 12/08/23 12:19 Blood Pressure 128/74 12/08/23 12:15 Blood Pressure Position Sitting 12/08/23 12:15 Pulse Oximetry 100 12/08/23 12:15 Oxygen Delivery Method Room Air 12/08/23 12:15 Oxygen Flow Rate 0 12/08/23 12:15 Pain Level 8 12/08/23 12:15 Medical Decision Making 28-year-old male presents to the ER with a chief complaint of requesting methadone he has been out of his methadone for the last 4 days. He reports to me that he will go to the [facility] tomorrow. 1225: medical staffing coordinator Daisy Monique spoke with Ifeoma at [facility], she reports that they will have to readjust patient's dose tomorrow morning. Patient is to present to the [facility] tomorrow morning for dosing. Will give patient information for our CT. He does endorse using fentanyl and crack in the last couple of days.. I will instruct him to be off the fentanyl and crack for approximately 24 hours for methadone dosing tomorrow. Patient reports that he will follow-up with [facility] tomorrow. Will give him some Tylenol ibuprofen here in the ER. Patient to be discharged with follow-up with [facility] This text was generated using [employer] dictation system, please disregard any oddities of phrase or misspellings. Quality:SDOH Health Related Social Needs: No Data to Display PFSH All Active Problems (Updated 12/08/23 @ 13:01 by Sofia Bates NP) Narcotic withdrawal (Acute) Discharge planning issues (Acute) Suicidal ideation (Acute) PTSD (post-traumatic stress disorder) (Acute 02/19/18) Insomnia (Acute 02/19/18) Gastroesophageal reflux disease (Acute 02/19/18) Adjustment disorder with emotional disturbance (Acute 02/19/18) Medical History (Updated 12/08/23 @ 13:01 by Sofia Bates NP) At high risk for suicide Social History Smoking/Tobacco Use Status: Current every day Tobacco Type: e-cigarettes Smoking risk assessment performed?: Yes Alcohol Intake: never Drug use: Never Substance use type: marijuana Details: fentanyl and crack, last use yesterday 12/07/23 Foster care: Yes Housing: apartment Do you feel safe in your relationship?: Yes Additional Social history: Smokes 1 pack/day, rare alcohol, occasional marijuana, no drugs of abuse.
--- NOTE | 2023-12-08 12:26 | NUR.NOTE ---
Nursing Note: Called [facility] and spoke w/Nurse Dia. Confirmed patient is an active client of [facility] and he needs to come into the clinic to meet with the provider for possible dose adjustment due to the # of days missed. Ifeoma reports to refer him back down to him for tomorrow AM for this.
[2023-12-08 13:16] VITALS: BP 128/74; PULSE 61; RESP 18; TEMP 36.8; O2SAT 100
[2023-12-08] MEDS: Ibuprofen 400 MG TAB PO (13:19)
[2023-12-08] MEDS: Acetaminophen 500 MG TAB PO (13:19)
== END 2023-12-08 13:17 | disposition home or self-care (01) ==
PROVIDERS: Emergency Provider Registered Nurse Emergency
DX: F11.13 Opioid abuse with withdrawal (principal); F17.290 Nicotine dependence, other tobacco product, uncomplicated
CPT/HCPCS: 99283